=== PATIENT | male | born 1940 | race Caucasian/White ===

== ENCOUNTER → 2024-09-24 | Day surgery (SDC) | payer MEDICARE ==
[~2024-09-24] MED LIST: ACETAMINOPHEN 1000 MG/100 ML 100 ML IV ONE; ALEVE220 M1; CRANBERRY200 MG; DEXAMETHASONE SOD PHOS INJ 4 MG/ML SDV ONE; DIGOXIN125 MCG PO; DIVALPROEX SOD125 MG; ELIQUIS2.5 MG PO; FENTANYL CITRATE/PF 100MCG/2 ML INJ ONE; FUROSEMIDE40 MG PO; KETOCONAZOLE15 GM TOP; LIDOCAINE HCL 2% LOCAL INJ 5 ML SDV VIAL INJ ONE; LISINOPRIL10 MG PO; ONDANSETRON HCL INJ 2MG/ML 2ML 2 MG/ML VIAL ONE; PROPOFOL IV EMULSION 10 MG/ML 20 ML VIAL ONE; SEVOFLURANE INHAL SOLN 250 ML PEN BTL ONE; THERA TEARS1 EACH; TRAMADOL HCL 50 MG TAB ONE
[2024-09-24 09:23] LABS: BASOPHILS # (AUTO) 0.1 (0.0-0.1); EOSINOPHILS # (AUTO) 0.6 (0.0-0.4); EOSINOPHILS % 8.7 % (0.0-6.0); HEMATOCRIT 48.5 % (38.2-49.6); HEMOGLOBIN 15.8 g/dL (14.0-18.0); LYMPHOCYTES # (AUTO) 1.8 (1.0-3.2); LYMPHOCYTES % 25.6 % (18.0-39.1); MEAN CORPUSCULAR HEMOGLOBIN 30.7 pg (28-32); MEAN CORPUSCULAR HGB CONC 32.6 g/dL (31-35); MEAN CORPUSCULAR VOLUME 94.4 fL (81-99); MONOCYTES # (AUTO) 0.6 (0.2-0.8); NEUTROPHILS % 56.6 % (38.7-80.0); PLATELET COUNT 156 x10e3/uL (140-360); RED BLOOD COUNT 5.14 x10e6/uL (4.3-5.7); RED CELL DISTRIBUTION WIDTH 13.9 % (11.7-14.4); WHITE BLOOD COUNT 6.99 x10e3/uL (4.8-10.8)
[2024-09-24 09:38] LABS: ANION GAP 16.9 mmol/L (8-16); CALCIUM 9.7 mg/dL (8.4-10.2); CREATININE, SERUM 0.83 mg/dL (0.72-1.25); POTASSIUM 4.9 mmol/L (3.5-5.1)
[2024-09-24] MEDS: CEFTRIAXONE 1 GM VIAL ONE (10:37)
[2024-09-24] MEDS: SODIUM CHLORIDE 0.9% 1000ML 1,000 ML ONE (10:37)
[2024-09-24 10:58] VITALS: TEMP 98.3
[2024-09-24 12:00] VITALS: BP 127/92; PULSE 63; RESP 18; O2SAT 98
== END | disposition home or self-care (01) ==
LOC: OR 07:48
PROVIDERS: ATTEND Urology
DX: N39.46 Mixed incontinence (principal); Z98.890 Other specified postprocedural states; C61 Malignant neoplasm of prostate; N39.0 Urinary tract infection, site not specified; N47.5 Adhesions of prepuce and glans penis; R39.12 Poor urinary stream; R35.0 Frequency of micturition; N47.6 Balanoposthitis; N47.1 Phimosis; N35.812 Other bulbous urethral stricture, male; N32.89 Other specified disorders of bladder; Z87.448 Personal history of other diseases of urinary system; I10 Essential (primary) hypertension; I25.10 Atherosclerotic heart disease of native coronary artery without angina pectoris; I48.91 Unspecified atrial fibrillation; E78.5 Hyperlipidemia, unspecified; Z88.6 Allergy status to analgesic agent; Z79.02 Long term (current) use of antithrombotics/antiplatelets; Z79.1 Long term (current) use of non-steroidal anti-inflammatories (NSAID); Z79.899 Other long term (current) drug therapy; Z68.35 Body mass index [BMI] 35.0-35.9, adult; Z86.73 Personal history of transient ischemic attack (TIA), and cerebral infarction without residual deficits; Z85.828 Personal history of other malignant neoplasm of skin
CPT/HCPCS: 36415; 51715; 52281; 54450; 71046; 74420; 80048; 85025; 87086; 93005; C1758; J0131; J0696; J1100; J2003; J2405; J2704; J3010; J7030; L8606